=== PATIENT | male | born 1940 | race Caucasian/White ===

== ENCOUNTER 2016-10-24 12:12 | Emergency (ER) | payer OTHER ==
[~2016-10-24] VITALS: Ht 172.7 cm; Wt 86.2 kg
[~2016-10-24 12:12] MED LIST: ALBUTEROL2.5 MG/3 M INH; ATORVASTATIN CA40 M1 PO; AUGMENTIN 500-1 EACH PO; AUGMENTIN 875-1 EACH PO; AZITHROMYCIN250 M1 PO; FUROSEMIDE20 M1 PO; LOSARTAN POTASS25 M1 PO; OMEPRAZOLE20 M2 PO; PREDNISONE10 M2 PO; PROAIR HFA8.5 GM INH; SINGULAIR10 M1 PO; SPIRIVA18 MCG INH; SYMBICORT 16010.2 GM INH; TOPROL XL25 M1 PO; TOPROL XL50 M1 PO; VESICARE5 M1 PO
[2016-10-24 12:51] LABS: ABSOLUTE BASOPHIL COUNT 0.1 /CUMM (0.0-0.2); ABSOLUTE EOSINOPHIL COUNT 0.6 /CUMM (0.0-0.7); ABSOLUTE GRANULOCYTE CT 6.6 /CUMM (1.4-6.5); ABSOLUTE LYMPH COUNT 1.7 /CUMM (1.2-3.4); BASOPHIL % 1.2 % (0.0-2.0); GRANULOCYTE % 66.3 % (42.2-75.2); MEAN CORPUSCULAR HGB 30.1 PG (27.0-31.0); MEAN CORPUSCULAR HGB CONC 32.3 G/DL (33.0-37.0); MEAN CORPUSCULAR VOLUME 93.2 FL (80.0-94.0); MEAN PLATELET VOLUME 9.4 FL (7.4-10.4); PLATELET COUNT 203 /CUMM (130-400); RBC DISTRIBUTION WIDTH 14.2 % (11.5-14.5); RED BLOOD CELL CT 5.26 /CUMM (4.70-6.10)
--- NOTE | 2016-10-24 12:51 | ED DYSPNEA/ASTHMA COMPLAINT ---
History of Present Illness General Chief Complaint: Dyspnea (COPD, CHF, Other) Stated Complaint: DIFF BREATHING Source: patient, family, old records, EMS Exam Limitations: no limitations Vital Signs & Intake/Output Vital Signs & Intake/Output Vital Signs Date Time Temp Pulse Resp B/P Pulse O2 O2 Flow FiO2 Ox Delivery Rate 10/24 1426 96.9 95 18 163/96 94 Room Air 10/24 1306 95 10/24 1253 95 10/24 1249 95 Room Air 10/24 1226 98.1 94 20 190/91 93 Room Air Allergies Coded Allergies: morphine (Severe, UNRESPONSIVE 04/20/16) Reconcile Medications Albuterol Sulfate 2.5 MG/3 ML (0.083 %) VIAL.NEB 3 ML INH Q8 PRN sob Albuterol Sulfate (Proair Hfa) 8.5 GM HFA.AER.AD 2 PUF INH Q4-6 PRN PRN COPD Atorvastatin Calcium 40 MG TABLET 1 TAB PO DAILY Hyperlipidemia (Reported) Azithromycin 250 MG TABLET 1 TAB PO DAILY copd Azithromycin (Zithromax) 250 MG TABLET 1 DP PO AD copd 2 the first day followed by 1 for days 2-5 Budesonide/Formoterol Fumarate (Symbicort 160-4.5 Mcg Inhaler) 10.2 GM HFA.AER.AD 2 PUF INH BID COPD Furosemide 20 MG TABLET 1 TAB PO DAILY leg swelling Losartan Potassium 25 MG TABLET 1 TAB PO DAILY hypertension Metoprolol Succ XL (Toprol Xl) 50 MG TAB 1 TAB PO DAILY Hypertension ( Reported) Metoprolol Succ XL (Toprol XL) 25 MG TAB 1 TAB PO DAILY blood pressure Montelukast Sodium (Singulair) 10 MG TABLET 1 TAB PO DAILY asthma Omeprazole 20 MG CAPSULE.DR 1 TAB PO DAILY AC gerd Prednisone 10 MG TABLET 1 TAB PO SI copd take 4tabs for 3days take 3tabs for 3days take 2tabs for 3days take 1tab for 3days then stop prednisone Prednisone 10 MG TABLET 1 TAB PO DAILY copd 6 tabs po x 3 days 5 tabs po x 3 days 4 tabs po x 3 days 3 tabs po x 3 days 2 tabs po x 3 days 1 tab po x 3 days Solifenacin Succinate (Vesicare) 5 MG TABLET 1 TAB PO DAILY Urinary retention (Reported) Tiotropium [place] (Spiriva) 18 MCG CAP.W.DEV 1 CAP INH DAILY COPD (Reported) Triage Note: PT TO ED C/O SOB SINCE YESTERDAY. PT APPEARS SOB. DENIES ANY PAIN, C/P. RA SATS 93%. EKG IN PROGRESS. PT TAKEN TO POD 3 VIA STRETCHER. Triage Nurses Notes Reviewed? yes Onset: Gradual Duration: day(s): (2) Timing: recent history Severity: moderate Activities at Onset: none Prior Episodes/Possible Cause: occasional episodes HPI: Patient is a 68-year-old male with history of COPD and asthma overlap presenting to the emergency department with chief complaint of increasing shortness of breath since yesterday evening. Denies any chest pain or palpitations. He also reports increased wheezing. No relief with home inhalers. Symptoms are worse when he tries to sleep. Denies any fevers or chills. He does report positive productive cough with yellow sputum. No sick contacts or recent travel. He called his canine service teacher who directed them to the emergency department for evaluation. Denies abdominal pain. No back pain. Denies any increasing lower extremity edema. (LLUVIA PALACIO) Past History Travel History Traveled to [place] past 21 day No Medical History Any Pertinent Medical History? see below for history Neurological: NONE EENT: NONE Cardiovascular: aortic aneurysm, hypertension, hyperlipidemia Respiratory: asthma, COPD Gastrointestinal: ACID REFLUX Hepatic: NONE Renal: NONE Musculoskeletal: disk herniation, osteoarthritis Psychiatric: NONE Endocrine: NONE Blood Disorders: NONE Cancer(s): NONE PRIVATE SECTOR EXECUTIVE/Reproductive: NONE History of MRSA: No History of VRE: No History of CDIFF: No Pneumonia Vaccine: 04/25/14 Surgical History Surgical History: CABG, NECK SURGERY Psychosocial History Who do you live with Spouse Services at Home None What is your primary language Kittitian Tobacco Use: Quit >30 days ago ETOH Use: denies use Illicit Drug Use: denies illicit drug use Family History Family History, If Any: Relation not specified for: *No pertinent family history Hx Contributory? No (LLUVIA PALACIO) Review of Systems Review of Systems Constitutional: Reports: no symptoms. Comments Review of systems: See HPI, All other systems negative. Constitutional, no chills fever or weight loss HEENT: No visual changes no sore throat no congestion Cardiovascular: No chest pain ,palpitation , orthopnea or ankle swelling Skin, no jaundice no rashes Respiratory: No dyspnea or hemoptysis GI: No nausea no vomiting : No dysuria No hematuria Muscle skeletal: no back pain, no neck pain, Neurologic: No numbness no confusion, no headaches Psych: No stress anxiety or depression,. Heme/endocrine: No bruising no bleeding no polyuria or polydipsia Immunology: No splenectomy or history of AIDS (LLUVIA PALACIO) Physical Exam Physical Exam General Appearance: well developed/nourished, alert, awake, mild distress Respiratory: wheezing Comments: Well-developed well-nourished person in mild respiratory distress HEENT: . Pupils equally round and reactive to light and accommodation. Nose is atraumatic. External auditory canal and Tympanic membranes clear. Pharynx normal. No swelling or edema. Neck: Supple, no lymphadenopathy, normal range of motion without pain or tenderness Back: Nontender, no CVA tenderness. Cardiovascular: Regular rate and rhythms no murmurs rubs or gallops, normal JVP Respiratory: Chest nontender. Mild respiratory distress.scattered wheezing to auscultation bilaterally Abdomen: Soft, obese, nontender, no appreciable organomegaly. Normal bowel sounds. No ascites Extremity: One plus pitting edema large ovaries bilaterally, no calf tenderness to palpation, normal and equal pulses. Neuro: Alert oriented x3, motor sensory normal Skin: No appreciable rash on exposed skin, skin is warm and dry. Psych: Mood and affect is normal, memory and judgment is normal. Core Measures ACS in differential dx? No Severe Sepsis Present: No Septic Shock Present: No (LLUVIA APLACIO) Progress Differential Diagnosis: asthma, AMI, bronchitis, costochondritis, CHF, COPD, pulmonary embolism, pneumonia, pneumothorax Plan of Care: Orders Procedure Date/time Status Add-on Test (ER Only) 10/24 1249 Active MAGNESIUM 10/24 1241 Complete TROPONIN LEVEL 10/24 1239 Complete PARTIAL THROMBOPLASTIN TIME 10/24 1239 Complete PROTHROMBIN TIME 10/24 1239 Complete COMPREHENSIVE METABOLIC PANEL 10/24 1239 Complete CBC WITHOUT DIFFERENTIAL 10/24 1239 Complete B-TYPE NATRIURETIC PEP (BNP) 10/24 1239 Complete EKG 10/24 1214 Active Current Medications Sig/Jasmeet Start time Last Medication Dose Stop Time Status Admin Azithromycin 500 MG ONCE ONE 10/24 1500 UNVr (Zithromax) 10/24 1501 Laboratory Tests 10/24/16 1336: Anion Gap 9, Estimated GFR > 60, BUN/Creatinine Ratio 13.8, Glucose 98, Calcium 9.7, Magnesium 1.9, Total Bilirubin 1.2, AST 37, ALT 50, Alkaline Phosphatase 67 , Troponin I < 0.01, Jgt-X-Fugienuwogm Pept 154 H, Total Protein 6.6, Albumin 4.0, Globulin 2.6, Albumin/Globulin Ratio 1.5 10/24/16 1241: PT 13.0 H, INR 1.24 H, APTT 30, CBC w Diff NO MAN DIFF REQ, RBC 5.26, MCV 93.2 , MCH 30.1, RDW 14.2, MPV 9.4, Gran % 66.3, Lymphocytes % 16.9 L, Monocytes % 9.6 H, Eosinophils % 6.0 H, Basophils % 1.2, Absolute Granulocytes 6.6 H, Absolute Lymphocytes 1.7, Absolute Monocytes 1.0 H, Absolute Eosinophils 0.6, Absolute Basophils 0.1, PUBS MCHC 32.3 L Diagnostic Imaging: Viewed by Me: Radiology Read. Discussed w/RAD: Radiology Read. CXR Impression: signs of COPD, thickening bronchial palacio Initial ED EKG: sinus rhythm at 90 bpm, multiple premature complexes, nonspecific T abnormality in the lateral leads Prior EKG: changed (more PVCs) Comments: On arrival patient medicated with DuoNeb treatment with follow-up albuterol. Also given Solu-Medrol. Patient does have diffuse wheezing. Villous S for pneumonia with chest x-ray. CBC, CMP and troponin ordered. EKG appears similar to previous EKG with a PVC present. Patient not having any chest pain and symptoms started approximately 24 hours ago. 10/24/2016 3:02:[address] Centeno, recommending high-dose prednisone taper and azithromycin to go home with. He'll follow-up with him in the office. Patient is compliant. All questions answered. Patient nontoxic. Ambulatory oxygen saturation ranges between 93-95%. (LLUVIA PALACIO) Departure Departure Time of Disposition: 6 Disposition: HOME OR SELF CARE Condition: Stable Clinical Impression Primary Impression: COPD exacerbation Referrals: SONY PETERSON,CT Bennett (PCP/Family) Additional Instructions: Follow-up with Dr. Centeno, your canine service teacher call to make an appointment. Take Z-Parag and prednisone as prescribed. Return for worsening symptoms or concerns. Continue using prescribed inhalers at home. Departure Forms: Customer Survey General Discharge Information Prescriptions: Current Visit Scripts Azithromycin (Zithromax) 1 DP PO AD #6 TAB 2 the first day followed by 1 for days 2-5 Prednisone 1 TAB PO DAILY #63 TAB 6 tabs po x 3 days 5 tabs po x 3 days 4 tabs po x 3 days 3 tabs po x 3 days 2 tabs po x 3 days 1 tab po x 3 days (LLUVIA PALACIO) PA/DIGITAL TECH Co-Sign Statement Statement: ED Attending supervision documentation- [X] I saw and evaluated the patient. I have also reviewed all the pertinent lab results and diagnostic results. I agree with the findings and the plan of care as documented in the PA's/DIGITAL TECH's documentation. [] I have reviewed the ED Record and agree with the PA's/DIGITAL TECH's documentation. [] Additions or exceptions (if any) to the PAs/DIGITAL TECH's note and plan are summarized below: [] (SHU PETERSON,BRADLY Nicholas) Critical Care Note Critical Care Note Critical Care Time: non-applicable (LLUVIA PALACIO)
[2016-10-24 13:23] LABS: PTT 30 SEC (25-37)
--- NOTE | 2016-10-24 13:51 | RADIOLOGY REPORT ---
EXAMINATION: XR CHEST CLINICAL INFORMATION: Coughing and wheezing. Evaluate for pneumonia. COMPARISON: 05/28/2016 TECHNIQUE: 2 views of the chest were obtained. FINDINGS: Bronchial palacio appear thickened in the perihilar regions of both lungs. No focal consolidation, pneumothorax or pleural effusion. There is stable biapical pleural thickening. There is linear opacity from scar in the left upper lobe. Cardiac silhouette is normal in size, post CABG, with intact sternotomy wires in place. Thoracic aorta is calcified. No acute skeletal findings. IMPRESSION: Inflammation of bronchial palacio -- as may be seen in asthma or bronchitis -- is suspected. However, no evidence of pneumonia.
[2016-10-24 14:26] VITALS: BP 163/96
[2016-10-24] MEDS ORDERED: PREDNISONE10 M2 PO (14:59)
[2016-10-24] MEDS ORDERED: ZITHROMAX250 M2 PO (14:59)
== END 2016-10-24 15:17 ==
LOC: ERH 12:12
PROVIDERS: Physician Assistant
DX: J44.1 Chronic obstructive pulmonary disease with (acute) exacerbation (principal)
CPT/HCPCS: 1263; 93005; 93010; 96374; J2930

== ENCOUNTER 2016-11-28 00:56 | Emergency (ER) | payer OTHER ==
[~2016-11-28] VITALS: Ht 172.7 cm; Wt 113.4 kg
[~2016-11-28 00:56] MED LIST changes: +ZITHROMAX250 M2 PO
--- NOTE | 2016-11-28 01:03 | ED DYSPNEA/ASTHMA COMPLAINT ---
History of Present Illness General Chief Complaint: Dyspnea (COPD, CHF, Other) Stated Complaint: DIFF BREATHING Source: patient Exam Limitations: no limitations Vital Signs & Intake/Output Vital Signs & Intake/Output Vital Signs Date Time Temp Pulse Resp B/P B/P Pulse O2 O2 Flow FiO2 Mean Ox Delivery Rate 11/28 0110 170/92 11/28 0107 96 Room Air 11/28 010 98.5 84 28 182/104 96 Room Air Allergies Coded Allergies: morphine (Severe, UNRESPONSIVE 04/20/16) Reconcile Medications Albuterol Sulfate 2.5 MG/3 ML (0.083 %) VIAL.NEB 3 ML INH Q8 PRN sob Albuterol Sulfate (Proair Hfa) 8.5 GM HFA.AER.AD 2 PUF INH Q4-6 PRN PRN COPD Amoxicillin/Potassium Clav (Augmentin 875-125 Tablet) 875 MG-125 MG TABLET 1 TAB PO BID bronchitis Atorvastatin Calcium 40 MG TABLET 1 TAB PO DAILY Hyperlipidemia (Reported) Azithromycin 250 MG TABLET 1 TAB PO DAILY copd Azithromycin (Zithromax) 250 MG TABLET 1 DP PO AD copd 2 the first day followed by 1 for days 2-5 Budesonide/Formoterol Fumarate (Symbicort 160-4.5 Mcg Inhaler) 10.2 GM HFA.AER.AD 2 PUF INH BID COPD Furosemide 20 MG TABLET 1 TAB PO DAILY leg swelling Losartan Potassium 25 MG TABLET 1 TAB PO DAILY hypertension Methylprednisolone. (Medrol) 4 MG TAB.DS.PK 1 DP PO AD bronchitis/copd 6 on day 1 then reduce by one tablet daily until gone Metoprolol Succ XL (Toprol Xl) 50 MG TAB 1 TAB PO DAILY Hypertension ( Reported) Metoprolol Succ XL (Toprol XL) 25 MG TAB 1 TAB PO DAILY blood pressure Montelukast Sodium (Singulair) 10 MG TABLET 1 TAB PO DAILY asthma Omeprazole 20 MG CAPSULE.DR 1 TAB PO DAILY AC gerd Prednisone 10 MG TABLET 1 TAB PO SI copd take 4tabs for 3days take 3tabs for 3days take 2tabs for 3days take 1tab for 3days then stop prednisone Prednisone 10 MG TABLET 1 TAB PO DAILY copd 6 tabs po x 3 days 5 tabs po x 3 days 4 tabs po x 3 days 3 tabs po x 3 days 2 tabs po x 3 days 1 tab po x 3 days Solifenacin Succinate (Vesicare) 5 MG TABLET 1 TAB PO DAILY Urinary retention (Reported) Tiotropium [place] (Spiriva) 18 MCG CAP.W.DEV 1 CAP INH DAILY COPD (Reported) Triage Nurses Notes Reviewed? yes Onset: Gradual Duration: day(s): Timing: recent history Severity: moderate Activities at Onset: none Prior Episodes/Possible Cause: occasional episodes Modifying Factors: Improves With: other (better with nebs). Associated Symptoms: cough, wheezing HPI: 76-year-old gentleman history of COPD and asthma presents with 6-7 days history of cough and wheezing associated with increased phlegm production. He is here to visit with his who was recently diagnosed with extension of lymphadenopathy consistent with metastasis of her primary cancer. He notes that he has mild wheezing cough and phlegm. He has no chest pain dizziness syncopal type symptoms. He has no fever. He is otherwise well and has no other concerns. Past History Travel History Traveled to [place] past 21 day No Medical History Any Pertinent Medical History? see below for history Neurological: NONE EENT: NONE Cardiovascular: aortic aneurysm, hypertension, hyperlipidemia Respiratory: asthma, COPD Gastrointestinal: ACID REFLUX Hepatic: NONE Renal: NONE Musculoskeletal: disk herniation, osteoarthritis Psychiatric: NONE Endocrine: NONE Blood Disorders: NONE Cancer(s): NONE BUSINESS APPLICATIONS MANAGER/Reproductive: NONE History of MRSA: No History of VRE: No History of CDIFF: No Pneumonia Vaccine: 04/25/14 Surgical History Surgical History: CABG, NECK SURGERY Psychosocial History Who do you live with Spouse Services at Home None What is your primary language Ukrainian Family History Family History, If Any: Relation not specified for: *No pertinent family history Hx Contributory? No Review of Systems Review of Systems Constitutional: Reports: no symptoms. EENTM: Reports: no symptoms. Respiratory: Reports: no symptoms. Cardiovascular: Reports: no symptoms. GI: Reports: no symptoms. Genitourinary: Reports: no symptoms. Musculoskeletal: Reports: no symptoms. Skin: Reports: no symptoms. Neurological/Psychological: Reports: no symptoms. Hematologic/Endocrine: Reports: no symptoms. Immunologic/Allergic: Reports: no symptoms. All Other Systems: Reviewed and Negative Physical Exam Physical Exam General Appearance: well developed/nourished, mild distress Head: atraumatic, normal appearance Eyes: Bilateral: normal appearance. Ears, Nose, Throat: normal pharynx, normal ENT inspection Neck: normal inspection, supple, full range of motion Respiratory: wheezing, no respiratory distress. Cardiovascular: regular rate/rhythm Gastrointestinal: normal bowel sounds, soft, non-tender Extremities: normal inspection, normal capillary refill, normal range of motion, no edema Neurologic/Psych: no motor/sensory deficits, awake, alert, oriented x 3 Skin: intact, normal color, warm/dry Core Measures ACS in differential dx? No Severe Sepsis Present: No Septic Shock Present: No Progress Differential Diagnosis: asthma, CHF, COPD Plan of Care: Orders Procedure Date/time Status EKG 11/29 151 Active TROPONIN LEVEL 11/28 124 Complete COMPREHENSIVE METABOLIC PANEL 11/28 124 Complete CBC WITHOUT DIFFERENTIAL 11/28 124 Complete EKG 11/29 107 Active Current Medications Sig/Jasmeet Start time Last Medication Dose Stop Time Status Admin Albuterol Sulfate 3 ML ONCE ONE 11/28 299 UNVr (Proventil) 11/28 300 Laboratory Tests 11/28/16 0141: Anion Gap 11, Estimated GFR > 60, BUN/Creatinine Ratio 18.8, Glucose 127 H, Calcium 8.9, Total Bilirubin 0.5, AST 32, ALT 49, Alkaline Phosphatase 58, Troponin I < 0.01, Total Protein 6.1 L, Albumin 3.8, Globulin 2.3, Albumin/ Globulin Ratio 1.7, CBC w Diff NO MAN DIFF REQ, RBC 4.93, MCV 93.9, MCH 30.9, RDW 14.9 H, MPV 9.9, Gran % 66.2, Lymphocytes % 19.5 L, Monocytes % 10.1 H, Eosinophils % 3.5, Basophils % 0.7, Absolute Granulocytes 6.8 H, Absolute Lymphocytes 2.0, Absolute Monocytes 1.0 H, Absolute Eosinophils 0.4, Absolute Basophils 0.1, PUBS MCHC 32.9 L Diagnostic Imaging: Viewed by Me: Radiology Read. Discussed w/RAD: Radiology Read. CXR Impression: no acute abnormality, no infiltrates, normal size heart, normal mediastinum Initial ED EKG: normal axis, normal intervals, normal p-waves, normal QRS complex, normal sinus rhythm Comments: PATIENT: JANEE WINKLER PRESENT AGE: 76 PATIENT ACCOUNT NO: [id number] : 38 LOCATION: [facility] ORDERING PHYSICIAN: YADIRA GARCIA MD SERVICE DATE: 11/28/16 EXAM TYPE: RAD - XRY-CHEST XRAY, PA AND LATERAL EXAMINATION: CHEST 2 VIEWS CLINICAL INFORMATION: Dyspnea. COMPARISON: October 24, 2016. TECHNIQUE: PA and lateral views of the chest were obtained. FINDINGS: The cardiac silhouette is stable. Intact midline sternal wires are present. The mediastinal and hilar contours are unremarkable. There are neither pleural effusions nor pneumothoraces. There is stable mild interstitial prominence present throughout both lungs. There are no consolidations. The osseous structures are unremarkable. IMPRESSION: No consolidations. DICTATED BY: ENE LUEVANO MD DATE/TIME DICTATED:11/28/16206 CELL ATTENDANT HELPER:RENAN DATE/TIME TRANSCRIBED:11/28/16206 CONFIDENTIAL, DO NOT COPY WITHOUT APPROPRIATE AUTHORIZATION. <Electronically signed in Other Vendor System> SIGNED BY: ENE LUEVANO MD 11/28/16210 Departure Departure Disposition: HOME OR SELF CARE Condition: Stable Clinical Impression Primary Impression: COPD exacerbation Referrals: SONY PETERSON,CT Bennett (PCP/Family) Departure Forms: Customer Survey General Discharge Information Prescriptions: Current Visit Scripts Methylprednisolone. (Medrol) 1 DP PO AD #1 DP 6 on day 1 then reduce by one tablet daily until gone Amoxicillin/Potassium Clav (Augmentin 875-125 Tablet) 1 TAB PO BID #20 TAB Comments 11/28/16, 2:50am... pt feels well. would like to go home... labs/cxr/ekg benign. pt safe for discharge with steroid taper/augmentin. pt to follow up with pmd and with his pumonologist. Critical Care Note Critical Care Note Critical Care Time: non-applicable
[2016-11-28 01:49] LABS: ABSOLUTE BASOPHIL COUNT 0.1 /CUMM (0.0-0.2); ABSOLUTE EOSINOPHIL COUNT 0.4 /CUMM (0.0-0.7); ABSOLUTE GRANULOCYTE CT 6.8 /CUMM (1.4-6.5); BASOPHIL % 0.7 % (0.0-2.0); EOSINOPHIL % 3.5 % (0-5); GRANULOCYTE % 66.2 % (42.2-75.2); HEMATOCRIT 46.3 % (42-52); MEAN CORPUSCULAR HGB 30.9 PG (27.0-31.0); MEAN CORPUSCULAR HGB CONC 32.9 G/DL (33.0-37.0); MEAN CORPUSCULAR VOLUME 93.9 FL (80.0-94.0); MEAN PLATELET VOLUME 9.9 FL (7.4-10.4); PLATELET COUNT 171 /CUMM (130-400); RBC DISTRIBUTION WIDTH 14.9 % (11.5-14.5); RED BLOOD CELL CT 4.93 /CUMM (4.70-6.10); WHITE BLOOD CELL COUNT 10.3 /CUMM (4.8-10.8)
--- NOTE | 2016-11-28 02:11 | RADIOLOGY REPORT ---
EXAMINATION: CHEST 2 VIEWS CLINICAL INFORMATION: Dyspnea. COMPARISON: October 24, 2016. TECHNIQUE: PA and lateral views of the chest were obtained. FINDINGS: The cardiac silhouette is stable. Intact midline sternal wires are present. The mediastinal and hilar contours are unremarkable. There are neither pleural effusions nor pneumothoraces. There is stable mild interstitial prominence present throughout both lungs. There are no consolidations. The osseous structures are unremarkable. IMPRESSION: No consolidations.
[2016-11-28] MEDS ORDERED: MEDROL4 M2 PO ×2 (02:38→02:44)
[2016-11-28] MEDS ORDERED: AUGMENTIN 875-1 EACH PO ×2 (02:38→02:44)
[2016-11-28 04:02] VITALS: BP 152/92
== END 2016-11-28 04:17 ==
LOC: ERH 00:56
PROVIDERS: Pediatrics
DX: J44.1 Chronic obstructive pulmonary disease with (acute) exacerbation (principal)
CPT/HCPCS: 1263; 93005; 93010; J3490